=== PATIENT | male | born 1975 | race Caucasian/White ===

== ENCOUNTER 2025-03-20 13:23 | Inpatient (IN) | payer OTHER ==
[2025-03-20 14:22] VITALS: BMI 21.4
[2025-03-20] MEDS ORDERED: ONDANSETRON *ODT* 4 MG TABLET SL PRN (15:18)
[2025-03-20] MEDS ORDERED: BENZOCAINE/MENTHOL (CHLORASEPTIC ) LOZENGE MM PRN (15:18)
[2025-03-20] MEDS ORDERED: IBUPROFEN 400 MG TABLET (FP) PO PRN (15:18)
[2025-03-20] MEDS ORDERED: BISMUTH SUBSALICYLATE 524 MG/30 ML PO PRN (15:18)
[2025-03-20] MEDS ORDERED: DICYCLOMINE HCL 10 MG CAPSULE PO PRN (15:18)
[2025-03-20] MEDS ORDERED: ACETAMINOPHEN 325 MG TABLET (FP) PO PRN (15:18)
[2025-03-20] MEDS ORDERED: NALOXONE (NARCAN) HCL 4 MG/0.1 ML SPRAY NS PRN (15:18)
[2025-03-20] MEDS ORDERED: LOPERAMIDE HCL 2 MG CAPSULE PO PRN (15:18)
[2025-03-20] MEDS ORDERED: BENZONATATE 200 MG CAPSULE PO PRN (15:18)
[2025-03-20] MEDS ORDERED: MAG HYDROX/AL HYDROX/SIMETH 30 ML UNIT-DOSE CUP PO PRN (15:18)
[2025-03-20] MEDS ORDERED: guaiFENesin 600 MG TABLET.ER (FP) PO PRN (15:18)
[2025-03-20] MEDS: IBUPROFEN 600 MG TABLET (FP) PO PRN (17:40)
[2025-03-20] MEDS: MAGNESIUM HYDROX 2400MG/30ML ORAL SUSPENSION 30 ML CUP PO PRN (19:13)
[2025-03-20] MEDS: MELATONIN 5 MG TABLETS PO SCH (22:06)
[2025-03-20] MEDS: METHOCARBAMOL 500 MG TABLET PO PRN (22:09)
[2025-03-20] MEDS: THIAMINE 100 MG TABLET PO SCH (22:09)
[2025-03-20] MEDS: hydrOXYzine PAMOATE 25 MG CAPSULE (FP) PO PRN (22:09)
[2025-03-20] MEDS: MUPIROCIN 2% TOPICAL OINTMENT 22 GM TUBE TP SCH (22:50)
[2025-03-21] MEDS: NICOTINE 21 MG/24 HOURS TOPICAL PATCH TD SCH (09:24)
[2025-03-21] MEDS: PRENATAL VITAMINS W/ FOLIC ACID TABLET (FP) PO SCH (09:24)
[2025-03-21] MEDS: KETOROLAC TROMETHAMINE 30 MG/1 ML VIAL IM ONE (12:53)
[2025-03-21 12:59] LABS: MCHC 29.8 g/dl (32.3-36.5); MEAN CELL VOLUME 82.2 fl (79.0-92.2); MEAN PLT VOLUME 12.4 fl (9.4-12.4); RDW 19.1 % (12.1-15.9)
[2025-03-21 13:29] LABS: CO2 24 mmol/L (21-32); GLUCOSE,RANDOM 97 mg/dL (74-106); SGOT/AST 27 U/L (15-37); SGPT/ALT 16 U/L (13-61)
[2025-03-21 13:32] LABS: CREATININE 1.1 mg/dL (0.55-1.3); TOT PROT 6.4 g/dl (6.4-8.2)
[2025-03-21 13:36] LABS: ALK PHOS 84 U/L (45-117)
[2025-03-21 14:26] LABS: HIV INTERPRETATION NEGATIVE (NEGATIVE)
[2025-03-21 15:06] LABS: HCV DIAGNOSTIC IN-HOUSE W/RFLX REACTIVE (NONREACTIVE)
[2025-03-21 16:40] LABS: IRON SERUM 23 ug/dL (50-175)
[2025-03-22] MEDS: FERROUS SO4 325 MG TABLET (FP) PO SCH (14:03)
[2025-03-22] MEDS: KETOROLAC TROMETHAMINE 15 MG/ML VIAL IM PRN (14:04)
[2025-03-22 18:35] LABS: MCHC 29.2 g/dl (32.3-36.5); MEAN CELL VOLUME 83.6 fl (79.0-92.2); MEAN PLT VOLUME 10.5 fl (9.4-12.4); RDW 19.3 % (12.1-15.9)
[2025-03-23] MEDS: POLYETHYLENE GLYCOL (HEALTHYLAX) 3350 17 GM PACKET PO PRN (21:44)
[2025-03-24] MEDS: BISACODYL 5 MG TABLET.DR (FP) PO ONE (12:05)
[2025-03-24] MEDS: guaiFENesin 200 MG/10 ML 10 ML UNIT-DOSE CUPS PO PRN (12:05)
[2025-03-26 09:04] VITALS: BP 136/75; PULSE 60; RESP 16; TEMP 96.2
== END 2025-03-26 13:15 | disposition other institution (70) | DRG 773 ==
LOC: YASAS 13:23 → Y6N 16:32
PROVIDERS: ADMIT Family Medicine; ATTEND Allergy & Immunology
PROC: HZ2ZZZZ Detoxification Services for Substance Abuse Treatment (ICD-10-PCS; principal; 2025-03-20)
DX: F11.23 Opioid dependence with withdrawal (principal); F14.20 Cocaine dependence, uncomplicated; G47.00 Insomnia, unspecified; F17.210 Nicotine dependence, cigarettes, uncomplicated; Z59.00 Homelessness unspecified
CPT/HCPCS: 36415; 80053; 80305; 80307; 82728; 83540; 83550; 85027; 86780; 86803; 87389; 87522; 87811; 93005; 93010